=== PATIENT | female | born 1990 | race Caucasian/White ===

== ENCOUNTER 2024-10-09 09:18 | Emergency (ER) | payer SELFPAY ==
[2024-10-09 09:18] VITALS: BP 150/80; PULSE 81; RESP 16; TEMP 36.5; O2SAT 100
--- NOTE | 2024-10-09 09:40 | ED.FEMALEGU ---
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 She started having spotting today and a small blood clot/tissue was found on the toilet paper. She has been spotting for 1 day. Bright red blood. Right lower groin area pains. MD elicited complaint: vaginal bleeding, pelvic pain ( Right groin) and other Pertinent past history: other ( right groin prior surgeries for hernias) Onset (ago): day(s) ( 1) Location of symptoms: pelvis ( right) Severity: mild Female Urogenital Radiation: Non-Radiating Severity scale (1-10): 1 Quality of pain: cramping Consistency: constant Vaginal discharge: none Vaginal bleeding: scant, bright red and clots Exacerbating factors: none Relieving factors: none Associated symptoms: denies other symptoms Treatment prior to arrival: none Sexual activity: Yes Patient : Yes ( per home test) Possible : at home test positive Related Data Home Medications ?Medication ?Instructions ?Recorded ?Confirmed ?Last Taken ?Type No Home Medications 10/09/24 10/09/24 Unknown History Allergies Allergy/AdvReac Type Severity Reaction Status Date / Time No Known Allergies Allergy Verified 10/09/24 09:42 Review of Systems Review of Systems: All systems reviewed & are unremarkable except as noted in HPI and below Constitutional: Constitutional: Reports no additional constitutional complaints Eyes: Eyes: Reports no additional eye complaints ENT: Reports system reviewed and no additional complaints, except as documented Cardiovascular: Cardiovascular: Reports no additional cardiovascular complaints Respiratory: Respiratory: Reports no additional respiratory complaints Gastrointestinal: Gastrointestinal: Reports no additional gastrointestinal complaints Genitourinary: Genitourinary: Reports no additional female genitourinary complaints Musculoskeletal: Musculoskeletal: Reports no additional musculoskeletal complaints Integumentary/Breasts: Skin/Breast: Reports system reviewed and no additional complaints, except as docu Neurologic: Reports system reviewed and no additional complaints, except as documented Psychiatric: Psychiatric: Reports no additional psychiatric complaints Endocrine: Endocrine: Reports no additional endocrine complaints Hematologic/Lymphatic: Hematologic/Lymphatic: Reports no additional hematologic/lymphatic complaints Allergic/Immunologic: Allergic/Immunologic: Reports no additional allergic/immunologic complaints Exam Const: General: healthy appearing Nutritional Appearance: well nourished Orientation/consciousness: patient oriented x3 HENMT: Head: normal to inspection Ears: external ears normal Face/Nose/Sinus: Normal external nose present Eyes: Conjunctivae: conjunctivae normal Pupils: Equal, round and reactive pupils present EOM: EOMs intact bilaterally Neck: Neck: normal visual inspection Chest: Chest palpation & inspection: normal inspection of the chest Resp: Effort & Inspection: normal respiratory effort and not labored Auscultation: clear to auscultation bilaterally and no crackles Cardio: Rate: regular rate Rhythm: regular rhythm Heart sounds: no murmurs GI: Inspection: non-distended GI Palp: Yes Soft to palpation, Yes Tenderness to palpation present (GI) ( more so right groin and not right lower quadrant), No Guarding due to palpation present (GI), No Rigid due to palpation, No Hernia present, No Palpable mass present and No Rebound tenderness present Auscultation: normal bowel sounds : General: Yes bladder normal to palpation Back/Spine/Pelvis: Back: no CVA tenderness Skin: General skin exam: normal color Rashes: no rashes Wounds: no wounds Neuro: General: patient oriented x3, moves all extremities and no meningeal signs Cranial nerves: Yes Nystagmus not present Speech: normal speech Extrem: General: normal to inspection Psych: Appearance: grossly normal Mental Status: mental status grossly normal Affect: normal affect Course Vital Signs Vital signs: Vital Signs Temperature 36.5 C 10/09/24 09:18 Pulse Rate 81 10/09/24 09:18 Respiratory Rate 16 10/09/24 09:18 Blood Pressure 150/80 H 10/09/24 09:18 Pulse Oximetry 100 10/09/24 09:18 Oxygen Delivery Room Air 10/09/24 09:18 Temperature 36.5 C 10/09/24 09:18 Pulse Rate 81 10/09/24 09:18 Respiratory Rate 16 10/09/24 09:18 Blood Pressure 150/80 H 10/09/24 09:18 Pulse Oximetry 100 10/09/24 09:18 Oxygen Delivery Room Air 10/09/24 09:18 MDM - Female Genitourinary MDM Narrative Medical decision making narrative: patient is a 33-year-old female with home testing positive a month ago. She is now having spotting and small clot today. We will do workup at this time. Lab Data Attestation: I reviewed the patient's lab results. Lab results narrative: known anemia 10/09/24 10:16 10/09/24 10:16 Labs: Lab Results 10/09/24 10/09/24 Range/Units 09:32 10:16 WBC 6.8 (4.8-10.8) K/mm3 RBC 3.94 L (4.20-5.40) M/mm3 Hgb 9.9 L (12.0-15.0) g/dL Hct 32.7 L (35.0-49.0) % MCV 83.0 (78.0-102.0) fL MCH 25.1 L (27.0-31.0) pg MCHC 30.3 L (32-36) g/dL RDW 16.0 H (11.6-14.4) % Plt Count 245 (150-420) K/mm3 MPV 9.5 (9.2-11.8) fl Immature Gran % (Auto) 0.3 H (0.0-0.0) % Neut % (Auto) 72.4 H (50.0-70.0) % Lymph % (Auto) 17.6 L (18.0-42.0) % [place] % (Auto) 6.9 (2.0-11.0) % Eos % (Auto) 2.1 (1.0-6.0) % Baso % (Auto) 0.7 (0.0-1.0) % Lymph # (Auto) 1.20 (1.10-4.50) K/mm3 [place] # (Auto) 0.47 (0.10-0.90) K/mm3 Eos # (Auto) 0.14 (0.02-0.50) K/mm3 Baso # (Auto) 0.05 (0.00-0.10) K/mm3 Abs Immat Gran (auto) 0.02 H (0.00-0.00) K/mm3 Absolute Neuts (auto) 4.92 (1.70-7.20) K/mm3 Absolute Nucleated RBC 0.00 (0.00-0.00) K/mm3 Nucleated RBC % 0.0 (0-0.0) % PT 11.2 (9.50-12.1) Seconds INR 1.0 APTT 27.9 (23.9-30.70) Sec Sodium 140 (137-145) mmol/L Potassium 3.7 (3.4-5.0) mmol/L Chloride 113 H (98-107) mmol/L Carbon Dioxide 24 (22-30) mmol/L Anion Gap 3 L (4-12) mmol/L BUN 9 (7-17) mg/dL Creatinine 0.63 L (0.7-1.0) mg/dL Estim Creat Clear Calc 103 ml/min Estimated GFR > 60 (59 - ) Glucose 89 (65-110) mg/dL Calculated Osmolality 287 (285-295) mOsm/kg Calcium 8.1 L (8.4-10.2) mg/dL Total Bilirubin 0.3 (0.2-1.3) mg/dL AST 18 (14-36) U/L ALT 11 (6-35) U/L Alkaline Phosphatase 66 (38-126) U/L Total Protein 7.1 (6.3-8.2) g/dL Albumin 4.2 (3.5-5.1) g/dL Beta HCG, Quant < 2.39 mIU/ML Urine Color Yellow (Yellow) Urine Appearance Cloudy A (Clear) Urine pH 6.0 (5.0-8.0) Ur Specific [place] 1.020 (1.010-1.020) Urine Protein Trace H (Negative) Urine Glucose (UA) Negative (Negative) Urine Ketones Negative (Negative) Ur Blood (Man) 3+ H (Negative) Urine Nitrate Negative (Negative) Urine Bilirubin Negative (Negative) Urine Urobilinogen 0.2 (0.2-1.0) mg/dL Leukocyte Esterase Rfl Negative (Negative) CHANTAL/UL Urine RBC >75 H (0-2) /hpf Urine WBC None seen (0-3) /hpf Ur Squamous Epith Cells Few (Few) /hpf Urine Bacteria 1+ H (None) /hpf Urine Test Negative Discharge Plan Discharge Clinical Impression: Missed Patient Disposition: Home Condition: Stable Instructions: Miscarriage (ED) Additional Instructions: Please follow-up with the primary doctor in the next week. Patient Language: Portuguese Prescriptions: No Action No Home Medications Follow-up/Referrals: Lul Bradford MD [Primary Care Provider] - Time of Disposition: 11:02
[2024-10-09 09:50] LABS: Add Urine Microscopic? YES; Appearance Urine Cloudy (Clear); Glucose Urine UA Negative (Negative); Leukocyte Esterase Ur Negative LEU/UL (Negative); Nitrate Urine Negative (Negative); Specific Grav Ur 1.020 (1.010-1.020)
[2024-10-09 09:58] LABS: Pregnancy On Board Control Positive
--- OUTSIDE RECORDS SUMMARY | 2024-10-09 10:04 | XMS_ITS | Referral Summary ---
Author Organization [facility] Address [address] [place] [address] Care Team Providers Care Mechanical Design Engineer Name Role Phone Vane Lawson DO Unavailable [phone] No, Physician Primary Care Provider [phone] Allergies Active Allergy Reactions Criticality Noted Date Comments Indigotindisulfonate Sodium Hives,Nausea only,Rash Medium 02/07/2018 Medications prenat vit [id number], 6 35-5-1.2-400 mg capsule Take by mouth daily. Active docusate sodium (COLACE) 100 mg capsuleIndications :constipation,Stoo l Softener Take 1 capsule (100 mg total) by mouth 2 (two) times a day as needed for constipation 40 capsule 1 01/27/20 21 Active sertraline (ZOLOFT) 50 mg tablet Take 2 tablets (100 mg total) by mouth daily 30 tablet 11 03/08/20 21 Active propranoloL (INDERAL) 10 mg tablet Take 1 tablet (10 mg total) by mouth as needed (Anxiety) 60 tablet 4 03/08/20 21 Active ibuprofen (ADVIL,MOTRIN) 600 mg tablet TAKE 1 TABLET BY MOUTH EVERY 6 HOURS NEEDED FOR PAIN 60 tablet 1 08/10/19 22 Active busPIRone (BUSPAR) 30 mg tablet Take 1 tablet (30 mg total) by mouth 2 (two) times a day 60 tablet 11 08/15/19 22 Active ketorolac (TORADOL) 10 mg tablet Take 1 tablet (10 mg total) by mouth every 6 (six) hours as needed for pain 20 tablet 01/23/20 24 Active ondansetron ODT (ZOFRAN-ODT) 4 mg disintegrating tablet Take 1 tablet (4 mg total) by mouth every 8 (eight) hours as needed for nausea or vomiting 20 tablet 01/23/20 24 Active Active Problems Problem Noted Date Diagnosed Date Atypical squamous cells kelley ot exclude high grade squamous intraepithelial lesion on cytologic smear of cervix (ASC-H) 01/26/2021 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 Patient declined. Recommend BLE prior to delivery Anxiety and depression 10/25/2020 Overview (11/25/2020): Largely related to the loss of her daughter On Zoloft and Buspar, Zoloft dose increased this Referred to counseling History of placental abruption 10/25/2020 Encounter for supervision of normal in second trimester Overview (12/09/2020): Dated by 9 wk PNL: O+/I/-/-, NR, Hep C neg GC/CT neg UCx neg Pap: ASC-H 06/23/20 Genetics: declined GCT: 89 Br/Jason: breast Contraception: interested in BTL Overview (10/26/2020): Seropositive, has never had a genital outbreak Discuss whether the patient wants prophylaxis at next visit, is not necessary if no h/o genital outbreaks Recommend BLE prior to delivery Resolved Problems Problem Noted Date Diagnosed Date Resolved Date Overview (10/26/2020): Seropositive, has never had a genital outbreak Discuss whether the patient wants prophylaxis at next visit, is not necessary if no h/o genital outbreaks Recommend BLE prior to delivery Immunizations Immunization Administration Dates Next Due HPV, Quadrivalent 01/31/2010,11/08/2009 Hep B, Adolescent or Pediatric 06/18/2002,2002,12/25/2001 Influenza, Quadrivalent, Spl it, Preservative Free, Intramuscular 11/19/2016 Meningococcal Polysaccharide (Menomune) 08/24/19 06 Tdap 08/23/2005 Social History Tobacco Use Types Packs/Day Years Used Date Smoking Tobacco: Heavy Smoker Cigarettes Smokeless Tobacco: Never Comments:Smoking History Pac ks/day: 0.5 Packs Alcohol Use Standard Drinks/Week Comments No 0 (1 standard drink = 0.6 oz pur e alcohol) AUDIT-C Answer Date Recorded Q1: How often do you have a drink containing alc ohol? Never 01/25/2021 Average Number of Drinks Not on file 021 Frequency of Binge Drinking Not on file 01/09 [place] Depression Scale Answer Date Recorded [place] Depression Scale Total 16 03/08/2021 The thought of harming myself has occurred to me . Never 03/08/2021 Personal Safety Answer Date Recorded Have you ever been in or are you currently in a harmful physical or emotional relationship or is someone making you feel afraid or unsafe? Denies 01/23/2024 Comments Unknown Sex and Gender Information Value Date Recorded Sex Assigned at Not on file Legal Sex Female 1:45 AM VIDEO NEWS EDITOR Gender Identity Not on file Sexual Orientation Not on file Last Filed Vital Signs Vital Sign Reading Time Taken Comments Blood Pressure 135/88 01/23/2024 3:16 PM VIDEO NEWS EDITOR Pulse 74 01/23/2024 3:16 PM VIDEO NEWS EDITOR Temperature 36.2 C (97.2 F) 01/23/2024 3:16 PM VIDEO NEWS EDITOR Respiratory Rate 16 01/23/2024 3:16 PM VIDEO NEWS EDITOR Oxygen Saturation 100% 01/23/2024 3:16 PM VIDEO NEWS EDITOR Inhaled Oxygen Concentration - - Weight 72.6 kg (160 lb) 01/23/2024 11:03 AM VIDEO NEWS EDITOR Height 162.6 cm (5' 4) 01/23/2024 11:03 AM VIDEO NEWS EDITOR Body Mass Index 27.46 01/23/2024 11:03 AM VIDEO NEWS EDITOR Plan of Treatment Not on file Procedures Procedure Name Priority Date/Time Associated Diagnosis Comments SERUM HEPATITIS C AB Routine 07/01/2014 11:38 AM CDT from Last 3 Months or Most Recently Relevant to Health Maintenance Results * Serum Hepatitis C ab (07/01/2014 11:38 AM CDT) HCV ab Negative Negative HISTORICAL RESULTS Serum 07/01/2014 11:3 8 AM CDT us China Burciaga MD LAB BLOOD ORDERABLE S Final Result HISTORICAL RESULTS from Last 3 Months or Most Recently Relevant to Health Maintenance Insurance Advance Directives For more information, please contact: [phone] * Full Code (Latest Code Status on File) Date Activated Date Inactivated Comments 01/25/2021 5:43 PM 01/27/2021 1:08 AM Full CPR i n case of cardiopulmonary arrest Care Teams Mechanical Design Engineer Relationship Specialty Start Date End Date No, Physician PCP - General 01/23/24 Vane Lawson DO [address] [place] [id number] Consulting Physician Obstetrics and Gynecology 01/26/21
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
[2024-10-09 10:20] LABS: Hematocrit 32.7 % (35.0-49.0); Hemoglobin 9.9 g/dL (12.0-15.0); Immature Granulocyte Percent A 0.3 % (0.0-0.0); Lymphocytes Absolute Auto 1.20 K/mm3 (1.10-4.50); Mean Corpuscular HGB Conc 30.3 g/dL (32-36); Mean Corpuscular Hemoglobin 25.1 pg (27.0-31.0); Mean Corpuscular Volume 83.0 fL (78.0-102.0); Nucleated Red Blood Cells Absolute Auto 0.00 K/mm3 (0.00-0.00); Nucleated Red Blood Cells Perc 0.0 % (0-0.0); Platelet Count Result 245 K/mm3 (150-420); Red Blood Count 3.94 M/mm3 (4.20-5.40); White Blood Count 6.8 K/mm3 (4.8-10.8)
[2024-10-09 10:31] LABS: Alanine Aminotransferase 11 U/L (6-35); Albumin Level 4.2 g/dL (3.5-5.1); Alkaline Phosphatase 66 U/L (38-126); Anion Gap 3 mmol/L (4-12); Aspartate Amino Transferase 18 U/L (14-36); Bilirubin,Total 0.3 mg/dL (0.2-1.3); Blood Urea Nitrogen 9 mg/dL (7-17); Calcium 8.1 mg/dL (8.4-10.2); Carbon Dioxide 24 mmol/L (22-30); Chloride 113 mmol/L (98-107); Estimated CRCL calculation 103 ml/min; Estimated Glomerular Filt Rate > 60; Glucose 89 mg/dL (65-110); Osmolality Calculated 287 mOsm/kg (285-295); Potassium 3.7 mmol/L (3.4-5.0); Sodium 140 mmol/L (137-145); Total Protein 7.1 g/dL (6.3-8.2)
[2024-10-09 10:44] LABS: INR 1.0; Partial Thromboplastin Time 27.9 Sec (23.9-30.70); Prothrombin Time 11.2 Seconds (9.50-12.1)
[2024-10-09 10:48] LABS: Beta HCG Quantitative < 2.39 mIU/ML
--- NOTE | 2024-10-09 10:54 | PC.NURSE ---
dr espino in with pt discussing plan of care for discharge.
[2024-10-09 11:05] VITALS: BP 151/100; PULSE 76; RESP 20; O2SAT 100
== END 2024-10-09 11:05 | disposition home or self-care (01) ==
PROVIDERS: Emergency Provider Emergency Medicine; PCP Internal Medicine
DX: O02.1 Missed abortion (principal)
CPT/HCPCS: 36415; 80053; 81001; 81025; 84702; 85025; 85610; 85730; 99283